=== PATIENT | female | born 1995 | race Caucasian/White ===

== ENCOUNTER 2019-01-25 09:50 | Emergency (ER) | payer BC ==
--- NOTE | 2019-01-25 10:30 | UC ---
Throat Pain/Nasal Steve HPI - HPI Summary HPI Summary: 23 yo female with sore throat and fever x 1 days no n/v/d no cp or ab has had mono mild myalgias and headache pauline to eat and drink but has a decreased headache - History of Current Complaint Chief Complaint: UCRespiratory Stated Complaint: FEVER SORE THROAT Time Seen by Provider: 01/25/19 10:04 Hx Obtained From: Patient Onset/Duration: Gradual Onset, Lasting Hours Severity: Moderate Pain Intensity: 5 Pain Scale Used: 0-10 Numeric Cough: None Associated Signs & Symptoms: Positive: Fever. Negative: Dysphagia, FB Sensation , Drooling, Wheezing, Hoarseness, Sinus Discomfort, Nasal Discharge, Vomiting, Rash Related History: Other (Noted In Comments) - MONO 2 years ago - Epiglottits Risk Factors Epiglottis Risk Factors: Negative - Allergies/Home Medications Allergies/Adverse Reactions: Allergies Allergy/AdvReac Type Severity Reaction Status Date / Time Penicillins Allergy Hives Verified 01/25/19 10:07 Home Medications: Home Medications Desog-E.estradiol/E.estradiol [Kariva 0.15-0.02/0.01 mg (13/10)] 1 tab PO [History] PMH/Surg Hx/FS Hx/Imm Hx Previously Healthy: Yes - Surgical History Surgical History: Yes Surgery Procedure, Year, and Place: wisdom teeth extraction - Family History Known Family History: Positive: Hypertension, Non-Contributory - Social History Alcohol Use: Occasionally Substance Use Type: None Smoking Status (MU): Never Smoked Tobacco Review of Systems All Other Systems Reviewed And Are Negative: Yes Constitutional: Positive: Fever Skin: Positive: Negative Eyes: Positive: Negative ENT: Positive: Sore Throat Respiratory: Positive: Negative Cardiovascular: Positive: Negative Gastrointestinal: Positive: Negative Genitourinary: Positive: Negative Motor: Positive: Negative Neurovascular: Positive: Negative Musculoskeletal: Positive: Myalgia - mild Neurological: Positive: Headache - mild Psychological: Positive: Negative Physical Exam Triage Information Reviewed: Yes Appearance: Well-Appearing Vital Signs: Initial Vital Signs Temp 99.1 F 01/25/19 10:03 Pulse 88 01/25/19 10:03 Resp 18 01/25/19 10:03 BP 109/61 01/25/19 10:03 Pulse Ox 99 01/25/19 10:03 Vital Signs Reviewed: Yes Eyes: Positive: Conjunctiva Clear ENT: Positive: Hearing grossly normal, Pharyngeal erythema, TMs normal, Tonsillar swelling - minimal, Tonsillar exudate - R>L, Uvula midline. Negative : Nasal congestion, Nasal drainage, Trismus, Muffled voice, Hoarse voice, Dental tenderness, Sinus tenderness Dental Exam: Normal Neck: Positive: Supple, Tenderness @ - tender enlarged ant cervical LNs Respiratory: Positive: Lungs clear, Normal breath sounds, No respiratory distress, No accessory muscle use Cardiovascular: Positive: RRR, No Murmur Abdomen Description: Positive: Nontender, No Organomegaly, Soft. Negative: CVA Tenderness (R), CVA Tenderness (L), Hepatomegaly, Splenomegaly Bowel Sounds: Positive: Present Musculoskeletal: Positive: ROM Intact, No Edema Neurological: Positive: Alert Psychological Exam: Normal Skin Exam: Normal Diagnostics - Laboratory Lab Results: strep (-) Throat Pain/Nasal Course/Dx - Differential Dx/Diagnosis Provider Diagnosis: Pharyngitis Discharge ED - Sign-Out/Discharge Documenting (check all that apply): Patient Departure All imaging exams completed and their final reports reviewed: No Studies - Discharge Plan Condition: Stable Disposition: HOME Patient Education Materials: Pharyngitis (ED) Referrals: [facility] - Bari MANN [[email or web address], APPLICATION, OTHER] - 4 Days (if not better) Additional Instructions: your strep test was negative recheck for worsening symptoms or if not better in 4 days rest fluids tylenol or advil - Billing Disposition and Condition Condition: STABLE Disposition: Home
== END 2019-01-25 10:35 | disposition home or self-care (01) ==
LOC: UCEAST 09:50
DX: J02.9 Acute pharyngitis, unspecified (principal); R50.9 Fever, unspecified; Z88.0 Allergy status to penicillin
CPT/HCPCS: 87651; 99201; G0463